=== PATIENT | male | born 1980 | race African-American/Black ===

== ENCOUNTER 2016-07-19 07:08 | Emergency (ER) | payer BC ==
[2016-07-19] MEDS ORDERED: DEXAMETHASONE SOD PHOS INJ 10 MG/1 ML VIAL IM ONE (07:58)
[2016-07-19] MEDS ORDERED: KETOROLAC TROMETHAMINE 60 MG/2 ML SDV IM ONE (07:58)
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
[2016-07-19 10:11] VITALS: BP 132/95
== END 2016-07-19 10:10 | disposition home or self-care (01) ==
LOC: ER 07:08
DX: M25.511 Pain in right shoulder (principal); F17.210 Nicotine dependence, cigarettes, uncomplicated
CPT/HCPCS: 99283; 73030; J1885; J1100

== ENCOUNTER 2018-04-19 08:17 | Emergency (ER) | payer SELFPAY ==
[2018-04-19 08:25] VITALS: BP 137/88
[2018-04-19] MEDS ORDERED: CEFTRIAXONE INJ 250 MG VIAL IM ONE (08:55)
[2018-04-19] MEDS ORDERED: CEFTRIAXONE INJ 1000 MG VIAL ONE (08:58)
--- NOTE | 2018-04-19 08:58 | ER Document Report ---
ED General - General Chief Complaint: Abscess Stated Complaint: ABSCESS Time Seen by Provider: 04/19/18 08:44 TRAVEL OUTSIDE OF THE [place] IN LAST 30 DAYS: No - HPI Patient complains to provider of: Abscess Notes: Patient coming in for evaluation of an abscess behind the left ear. Patient states a few days ago noticed a little knot behind the left ear patient states he continue to grow states last night his pressed on the wound causing and expressing pus to come out patient states exquisitely tender earlier this morning and now is red and warm. Patient denies any fevers chills nausea vomiting diarrhea. Patient denies history of MRSA in the past. Patient denies any trauma to the area denies any ear pain patient resting comfortably upon my evaluation - Related Data Allergies/Adverse Reactions: No Known Allergies Allergy (Verified 04/19/18 08:17) Past Medical History - Social History Smoking Status: Current Every Day Smoker Chew tobacco use (# tins/day): No Frequency of alcohol use: Social Drug Abuse: None Family History: Arthritis, CAD, CVA, Hyperlipidemia, Hypertension Patient has suicidal ideation: No Patient has homicidal ideation: No Renal/ Medical History: Denies: Hx Peritoneal Dialysis - Immunizations Immunizations up to date: No Hx Diphtheria, Pertussis, Tetanus Vaccination: No Review of Systems - Review of Systems Constitutional: No symptoms reported EENT: Other - Abscess Cardiovascular: No symptoms reported Respiratory: No symptoms reported Gastrointestinal: No symptoms reported Genitourinary: No symptoms reported Male Genitourinary: No symptoms reported Musculoskeletal: No symptoms reported Skin: No symptoms reported Hematologic/Lymphatic: No symptoms reported Neurological/Psychological: No symptoms reported -: Yes All other systems reviewed and negative Physical Exam - Vital signs Vitals: Temp Pulse Resp BP Pulse Ox 97.6 F 96 18 137/88 H 99 04/19/18 08:21 04/19/18 08:21 04/19/18 08:21 04/19/18 08:21 04/19/18 08:21 Interpretation: Normal - General General appearance: Appears well, Alert - HEENT Head: Normocephalic, Atraumatic Eyes: Normal Conjunctiva: Normal Cornea: Normal Eyelashes: Normal Pupils: PERRL Ears: Normal, Other - Behind the left ear around the postauricular area there is significant erythema and tenderness to palpation there is signs of drainage from it looks like to be possible lymph node versus abscess bedside ultrasound was performed showing no fluid collection that is drainable at this time External canal: Normal Tympanic membrane: Normal Sinus: Normal Nasal: Normal Mouth/Lips: Normal Mucous membranes: Normal Pharynx: Normal Neck: Normal. No: Lymphadenopathy Notes: Examination of the patient's oral cavity reveals severe dental disease with multiple dental caries - Respiratory Respiratory status: No respiratory distress Chest status: Nontender Breath sounds: Normal Chest palpation: Normal - Cardiovascular Rhythm: Regular Heart sounds: Normal auscultation Murmur: No - Abdominal Inspection: Normal Distension: No distension Bowel sounds: Normal Tenderness: Nontender Organomegaly: No organomegaly - Back Back: Normal, Nontender - Extremities General upper extremity: Normal inspection, Nontender, Normal color, Normal ROM, Normal temperature General lower extremity: Normal inspection, Nontender, Normal color, Normal ROM, Normal temperature, Normal weight bearing. No: Mark's sign - Neurological Neuro grossly intact: Yes Cognition: Normal Orientation: AAOx4 [place] Coma Scale Eye Opening: Spontaneous [place] Coma Scale Verbal: Oriented Yessica Coma Scale Motor: Obeys Commands [place] Coma Scale Total: 15 Speech: Normal Motor strength normal: LUE, RUE, LLE, RLE Sensory: Normal - Psychological Associated symptoms: Normal affect, Normal mood - Skin Skin Temperature: Warm Skin Moisture: Dry Skin Color: Normal Course - Re-evaluation Re-evalutation: 04/19/18 09:43 Patient's history is consistent with an abscess versus an infected lymph node in the postauricular area patient now has significant cellulitis of the area will give the patient a shot of Rocephin will start the patient on clindamycin for antibiotic coverage. Otherwise examination is normal patient will be discharged home follow-up primary care physician. - Vital Signs Vital signs: Temp Pulse Resp BP Pulse Ox 97.6 F 96 18 137/88 H 99 04/19/18 08:21 04/19/18 08:21 04/19/18 08:21 04/19/18 08:21 04/19/18 08:21 Discharge - Discharge Clinical Impression: Cellulitis and abscess of head Condition: Good Disposition: HOME, SELF-CARE Instructions: Abscess ([facility]), Cellulitis ([facility]), Clindamycin ([facility]), Oral Narcotic Medication ([facility]) Additional Instructions: More likely he had an abscess last night that your drained pus out of them now have a skin infection or cellulitis we will treat this with antibiotic called clindamycin. I will highly recommend she follow-up with your primary care physician return to the ER symptoms worsen. You may take Tylenol and Motrin for your pain control Ultram for severe pain you may place warm packs to the area to help out with pain control as well. Prescriptions: Ibuprofen [Motrin 600 mg Tablet] 600 mg PO Q8HP PRN #21 tablet PRN Reason: Clindamycin HCl [Cleocin 150 mg Capsule] 150 mg PO Q6 #40 capsule Tramadol HCl [Ultram 50 mg Tablet] 50 mg PO ASDIR PRN #10 tablet PRN Reason: Forms: Return to Work
== END 2018-04-19 09:20 | disposition home or self-care (01) ==
LOC: ER 08:17
DX: L03.811 Cellulitis of head [any part, except face] (principal); H60.02 Abscess of left external ear; F17.200 Nicotine dependence, unspecified, uncomplicated
CPT/HCPCS: 99282; J0696

== ENCOUNTER 2019-03-16 01:01 | Observation (INO) | payer OTHER ==
[2019-03-16] MEDS ORDERED: ASPIRIN 81 MG TABLET, CHEWABLE PO ONE (01:11)
--- NOTE | 2019-03-16 01:14 | ER Document Report ---
ED Cardiac - General Stated Complaint: CHEST PAIN,SHORT OF BREATH Time Seen by Provider: 03/16/19 01:05 Notes: Patient is a 38-year-old male that comes emergency department for chief complaint of chest pain. He states chest pain started in the middle of his chest and towards the left side of his chest about 20 minutes prior to arrival, he states that the pain is making him feel short of breath and he started hyperventilating. He denies nausea or vomiting, cough, fever/chills, injury. He states he just quit smoking. Past medical history of hypertension and he is also reportedly on Plavix and aspirin, he states that he had a cardiac cath and stent performed at [facility] at the end of February. He denies medical history otherwise. TRAVEL OUTSIDE OF THE [place] IN LAST 30 DAYS: No - Related Data Allergies/Adverse Reactions: No Known Allergies Allergy (Verified 04/19/18 08:17) Past Medical History - General Information source: Patient - Social History Smoking Status: Former Smoker Lives with: Other - Incarcerated Family History: Arthritis, CAD, CVA, Hyperlipidemia, Hypertension - Past Medical History Cardiac Medical History: Reports: Hx Coronary Artery Disease, Hx Heart Attack, Hx Hypertension Renal/ Medical History: Denies: Hx Peritoneal Dialysis Past Surgical History: Reports: Hx Cardiac Catheterization - Cardiac catheterization with drug-eluting stent in February 2019 - Immunizations Hx Diphtheria, Pertussis, Tetanus Vaccination: Yes Review of Systems - Review of Systems Constitutional: No symptoms reported EENT: No symptoms reported Cardiovascular: See HPI Respiratory: See HPI Gastrointestinal: No symptoms reported Genitourinary: No symptoms reported Male Genitourinary: No symptoms reported Musculoskeletal: No symptoms reported Skin: No symptoms reported Hematologic/Lymphatic: No symptoms reported Neurological/Psychological: See HPI Physical Exam - Vital signs Vitals: Temp Pulse Resp Pulse Ox 97.4 F 79 22 H 100 03/16/19 01:12 03/16/19 01:12 03/16/19 01:12 03/16/19 01:12 - Notes Notes: GENERAL: Alert, responsive, hyperventilating and anxious appearing HEAD: Normocephalic, atraumatic. EYES: Pupils equal, round, and reactive to light. Extraocular movements intact. ENT: Oral mucosa moist, tongue midline. Oropharynx unremarkable. Airway patent. Nares patent, no nasal septal hematoma, TM's intact. NECK: Full range of motion. Supple. Trachea midline. LUNGS: Clear to auscultation bilaterally, no wheezes, rales, or rhonchi. Hyperventilating. There is some mild tenderness along the parasternal areas bilaterally without erythema, swelling, or severe tenderness. HEART: Regular rate and rhythm. No murmur ABDOMEN: Soft, non-tender. Non-distended. EXTREMITIES: Moves all 4 extremities spontaneously. No edema, normal radial and dorsalis pedis pulses bilaterally. No cyanosis. BACK: no cervical, thoracic, lumbar midline tenderness. No saddle anesthesia, normal distal neurovascular exam. Moves all extremities in full range of motion. NEUROLOGICAL: Alert and oriented x3. Normal speech. Cranial nerves II through XII grossly intact. PSYCH: Hyperventilating and anxious appearing SKIN: Warm, dry, normal turgor. No rashes or lesions noted. Course - Re-evaluation Re-evalutation: Patient initially hyperventilating, appears anxious and states he is feeling s harp pain in the chest radiating to the left side. Patient given aspirin, work- up initiated, will closely reevaluate. His vital signs are normal. EKG without concerning findings, chest x-ray unremarkable. I reevaluated patient, he is much calmer, pain is almost resolved, he is no longer hyperven tilating. He states he became anxious because of his recent experience with his heart. Troponin negative. CBC shows mild leukocytosis, nonspecific. Chemistry unremarkable. I did obtain records from [facility], this does confirm that patient had a STEMI, V. fib arrest, 2 minutes of chest compressions, and had a cardiac catheterization with a stent placed. He states that he missed the [facility] low-up to cardiology because he was told it would be $300. He states pain is still minimally there. He does also have some parasternal chest wall tenderness although this is hard to say that it is the same pain he was feeling because pain was mainly spreading out over the left side of the chest when he felt it. Discussed with Dr. Muller. Because of his recent cardiac history recommendation is to admit to telemetry observation. After the small dose of morphine the left-sided radiating pain is resolved, only the chest wall pain remains and this is mild and mainly with palpation. Patient does distinguish between the two. Discussed with Dr. Woods, he recommends repeat troponin. Discussed with Dr. Woods again, second troponin negative, patient has been reevaluated bedside without change, patient accepted to telemetry observation. - Vital Signs Vital signs: Temp Pulse Resp BP Pulse Ox 97.8 F 75 16 131/80 H 98 03/16/19 05:32 03/16/19 05:32 03/16/19 05:32 03/16/19 05:32 03/16/19 05:32 - Laboratory Result Diagrams: 03/16/19 01:15 03/16/19 01:15 Laboratory results interpreted by me: 03/16/19 03/16/19 01:15 01:15 WBC 14.1 H RBC 4.18 L MCV 108 H MCH 36.9 H RDW 15.8 H Baso % (Auto) 2.5 H Absolute Basos (auto) 0.4 H Calcium 10.5 H Total Protein 8.5 H Albumin 5.1 H - EKG Interpretation by Me Additional EKG results interpreted by me: Patient is EKG shows sinus rhythm at a rate of 83, QTC of 49, normal axis, no T wave inversions or ST segment changes in consecutive leads. There is small amount of artifact present. Discharge - Discharge Clinical Impression: Chest pain Qualifiers: Chest pain type: chest pain on breathing Qualified Code(s): R07.1 - Chest pain on breathing Condition: Stable Disposition: ADMITTED OBSERVATION Admitting Provider: Chuck (Hospitalist) Unit Admitted: Telemetry
[2019-03-16 01:44] LABS: ABSOLUTE BASOPHILS # (AUTO) 0.4 10^3/uL (0.0-0.2); ABSOLUTE EOSINOPHILS # (AUTO) 0.5 10^3/uL (0.0-0.6); ABSOLUTE LYMPHOCYTES (AUTO) 4.2 10^3/uL (0.5-4.7); ABSOLUTE MONOCYTES (AUTO) 0.8 10^3/uL (0.1-1.4); ABSOLUTE NEUT (AUTO) 8.2 10^3/uL (1.7-8.2); BASOPHILS % (AUTO) 2.5 % (0-2); EOSINOPHILS % (AUTO) 3.5 % (0-6); HEMATOCRIT 44.9 % (37.9-51.0); HEMOGLOBIN 15.4 g/dL (13.5-17.0); LYMPHOCYTES % (AUTO) 29.8 % (13-45); MEAN CORPUSCULAR HEMOGLOBIN 36.9 pg (27.0-33.4); MEAN CORPUSCULAR HGB CONC 34.3 g/dL (32.0-36.0); MEAN CORPUSCULAR VOLUME 108 fl (80-97); MONOCYTES % (AUTO) 5.8 % (3-13); PLATELET COUNT 434 10^3/uL (150-450); RED BLOOD COUNT 4.18 10^6/uL (4.35-5.55); RED CELL DISTRIBUTION WIDTH 15.8 % (11.5-14.0); SEGMENTED NEUTROPHILS % (AUTO) 58.4 % (42-78); TOTAL CELLS COUNTED % (AUTO) 100 %; WHITE BLOOD COUNT 14.1 10^3/uL (4.0-10.5)
--- NOTE | 2019-03-16 02:06 | RADIOLOGY REPORT (SQ) ---
CLINICAL HISTORY: chest pain COMPARISON: None. TECHNIQUE: XR CHEST 1 VIEW 03/16/2019 1:11 AM [employer] [facility] COORD[employer] FINDINGS: Cardiac silhouette is normal in size. Lungs are clear without consolidation, atelectasis, mass or edema. There is no pleural effusion. There is no pneumothorax. There are no acute osseous findings. IMPRESSION: Clear lungs.
[2019-03-16 02:16] LABS: ALBUMIN 5.1 g/dL (3.5-5.0); ALKALINE PHOSPHATASE 98 U/L (38-126); ANION GAP 18 (5-19); ASPARTATE AMINO TRANSFERASE 45 U/L (17-59); BILIRUBIN,DIRECT 0.2 mg/dL (0.0-0.4); BILIRUBIN,TOTAL 0.7 mg/dL (0.2-1.3); BLOOD UREA NITROGEN 15 mg/dL (7-20); CALCIUM 10.5 mg/dL (8.4-10.2); CARBON DIOXIDE 23 mmol/L (22-30); CHLORIDE 99 mmol/L (98-107); GLUCOSE 86 mg/dL (75-110); TOTAL PROTEIN 8.5 g/dL (6.3-8.2)
[2019-03-16] MEDS ORDERED: MORPHINE SULFATE 10 MG/ML INJ IV ONE (03:39)
[2019-03-16] MEDS ORDERED: ONDANSETRON HCL INJ/PF 4 MG/2 ML SDV IV ONE (03:40)
[2019-03-16] MEDS ORDERED: NITROGLYCERIN 0.4 MG/TAB 25 TAB/BOTTLE SL PRN (06:11)
--- NOTE | 2019-03-16 06:38 | PDOC H&P ---
History of Present Illness Admission Date/PCP: 03/16/19 06:07 Patient complains of: Chest pain History of Present Illness: NUBIA HU is a 38 year old male with a past medical history of hypertension, tobacco, marijuana abuse and a V. fib arrest 21 days ago at [facility]. He received several minutes of CPR with successful resuscitation he was taken to the [facility] and found to have an occluded coronary artery which was stented. He was discharged with aspirin and Plavix with scheduled follow-up in the [place] office however has missed this appointment secondary to incarceration. Patient admits 48 hours of missed medications prior to incarce ration. He presents with sharp retrosternal chest pain 2 out of 5 intensity lasting approximately 1 minute which is intermittent. He is unable to identify alleviating factors however it is exacerbated by deep breathing and is associated with some shortness of breath with normal pulse oximetry. In the emergency department he has an unremarkable work-up with exception to mild leukocytosis he is referred to the hospitalist for admission. Patient has a notable anxious affect. Past Medical History Cardiac Medical History: Reports: Hyperlipidema, Hypertension Psychiatric Medical History: Reports: Substance Abuse, Tobacco Dependency Past Surgical History Past Surgical History: Reports: Cardiac Catheterization, Coronary Stent Social History Information Source: Patient, Emergency Med Personnel, Outside Facility Records Lives with: Other Smoking Status: Former Smoker Drugs: Marijuana - Advance Directive Resuscitation Status: Full Code Family History Family History: Arthritis, CAD, CVA, Hyperlipidemia, Hypertension Parental Family History Reviewed: Yes Children Family History Reviewed: Yes Sibling(s) Family History Reviewed.: Yes Medication/Allergy Home Medications: Ondansetron [Zofran Odt 4 mg Tablet] 1 - 2 tab PO Q4H PRN #15 tab.rapdis 07/09/14 Promethazine HCl [Phenergan 25 mg Tablet] 1 - 2 tab PO Q6H PRN #15 tablet 07/09/14 Sucralfate [Carafate 1 gm Tablet] 1 gm PO ACHS #30 tablet 07/09/14 Oxycodone HCl/Acetaminophen [Percocet 5-325 mg Tablet] 1 - 2 tab PO Q4H PRN #15 tablet 03/25/16 Hydrocodone/Acetaminophen [[place] 5-325 mg Tablet] 1 tab PO Q6HP PRN #10 tablet 07/19/16 Clindamycin HCl [Cleocin 150 mg Capsule] 150 mg PO Q6 #40 capsule 04/19/18 Ibuprofen [Motrin 600 mg Tablet] 600 mg PO Q8HP PRN #21 tablet 04/19/18 Tramadol HCl [Ultram 50 mg Tablet] 50 mg PO ASDIR PRN #10 tablet 04/19/18 Allergies/Adverse Reactions: No Known Allergies Allergy (Verified 04/19/18 08:17) Review of Systems Constitutional: ABSENT: chills, fever(s), headache(s), weight gain, weight loss Eyes: ABSENT: visual disturbances Ears: ABSENT: hearing changes Cardiovascular: ABSENT: chest pain, dyspnea on exertion, edema, orthropnea, palpitations Respiratory: ABSENT: cough, hemoptysis Gastrointestinal: ABSENT: abdominal pain, constipation, diarrhea, hematemesis, hematochezia, nausea, vomiting Genitourinary: ABSENT: dysuria, hematuria Musculoskeletal: ABSENT: joint swelling Integumentary: ABSENT: rash, wounds Neurological: ABSENT: abnormal gait, abnormal speech, confusion, dizziness, focal weakness, syncope Psychiatric: ABSENT: anxiety, depression, homidical ideation, suicidal ideation Endocrine: ABSENT: cold intolerance, heat intolerance, polydipsia, polyuria Hematologic/Lymphatic: ABSENT: easy bleeding, easy bruising Physical Exam Vital Signs: Temp Pulse Resp BP Pulse Ox 97.8 F 75 16 131/80 H 98 03/16/19 05:32 03/16/19 05:32 03/16/19 05:32 03/16/19 05:32 03/16/19 05:32 Intake & Output 03/14/19 03/15/19 03/16/19 11:59 11:59 11:59 Weight 86.183 kg General appearance: PRESENT: no acute distress, well-developed, well-nourished Head exam: PRESENT: atraumatic, normocephalic Eye exam: PRESENT: conjunctiva pink, EOMI, PERRLA. ABSENT: scleral icterus Ear exam: PRESENT: normal external ear exam Mouth exam: PRESENT: moist, tongue midline Neck exam: ABSENT: carotid bruit, JVD, lymphadenopathy, thyromegaly Respiratory exam: PRESENT: clear to auscultation asha. ABSENT: rales, rhonchi, wheezes Cardiovascular exam: PRESENT: RRR. ABSENT: diastolic murmur, rubs, systolic murmur Pulses: PRESENT: normal dorsalis pedis pul Vascular exam: PRESENT: normal capillary refill GI/Abdominal exam: PRESENT: normal bowel sounds, soft. ABSENT: distended, guarding, mass, organolmegaly, rebound, tenderness Rectal exam: PRESENT: deferred Extremities exam: PRESENT: full ROM. ABSENT: calf tenderness, clubbing, pedal edema Neurological exam: PRESENT: alert, awake, oriented to person, oriented to place, oriented to time, oriented to situation, CN II-XII grossly intact. ABSENT: motor sensory deficit Psychiatric exam: PRESENT: appropriate affect, normal mood. ABSENT: homicidal ideation, suicidal ideation Skin exam: PRESENT: dry, intact, warm. ABSENT: cyanosis, rash Results Laboratory Results: 03/16/19 01:15 03/16/19 01:15 03/16/19 03/16/19 01:15 01:15 WBC 14.1 H RBC 4.18 L Hgb 15.4 Hct 44.9 MCV 108 H MCH 36.9 H MCHC 34.3 RDW 15.8 H Plt Count 434 Seg Neutrophils % 58.4 Sodium 140.3 Potassium 4.0 Chloride 99 Carbon Dioxide 23 Anion Gap 18 BUN 15 Creatinine 0.93 Est GFR ( Amer) > 60 Glucose 86 Calcium 10.5 H Total Bilirubin 0.7 AST 45 Alkaline Phosphatase 98 Total Protein 8.5 H Albumin 5.1 H 03/16/19 03/16/19 01:15 04:15 Troponin I < 0.012 < 0.012 Impressions: Chest X-Ray 03/16/19 01:11 IMPRESSION: Clear lungs. Assessment and Plan - Diagnosis (1) Coronary artery disease Is this a current diagnosis for this admission?: Yes Plan: Continue dual antiplatelet therapy, Lopressor and atorvastatin (2) Chest pain Qualifiers: Chest pain type: chest pain on breathing Qualified Code(s): R07.1 - Chest pain on breathing; R07.81 - Pleurodynia Is this a current diagnosis for this admission?: Yes Plan: Telemetry observation for possible ACS however more likely atelectasis versus Matt's. Follow-up ESR and serial cardiac enzymes. (3) Anxiety Is this a current diagnosis for this admission?: Yes Plan: Possible cannabis withdrawal, supportive care follow-up urine drug screen - Time Time Spent with patient: 25-34 minutes - Inpatient Certification Medical Necessity: Need Close Monitoring Due to Risk of Patient Decompensation
[2019-03-16 07:49] LABS: URINE AMPHETAMINES SCREEN NEGATIVE; URINE BARBITURATES SCREEN NEGATIVE; URINE BENZODIAZEPINES SCREEN NEGATIVE; URINE COCAINE SCREEN NEGATIVE; URINE MARIJUANA (THC) SCREEN NEGATIVE; URINE METHADONE SCREEN NEGATIVE; URINE PHENCYCLIDINE SCREEN NEGATIVE
--- NOTE | 2019-03-16 08:09 | EKG REPORT ---
SEVERITY:- BORDERLINE ECG - SINUS RHYTHM PROBABLE LEFT ATRIAL ABNORMALITY BORDERLINE PROLONGED QT INTERVAL BORDERLINE NH INTERVAL. : Confirmed by: Presley Amaya MD 16-Mar-2019 08:08:22
[2019-03-16] MEDS: ASPIRIN 81 MG TABLET, ENT COATED PO SCH (10:05)
[2019-03-16] MEDS: CLOPIDOGREL BISULFATE 75 MG TABLET PO SCH (10:05)
[2019-03-16 11:37] LABS: APPEARANCE,URINE CLEAR; BILIRUBIN,URINE NEGATIVE (NEGATIVE); COLOR,URINE LIGHT YELLOW; GLUCOSE, URINE NEGATIVE (NEGATIVE); KETONES,URINE NEGATIVE (NEGATIVE); LEUKOCYTE ESTERASE,URINE SMALL (NEGATIVE); NITRITE,URINE NEGATIVE (NEGATIVE); PROTEIN,URINE NEGATIVE (NEGATIVE); URINE SPECIFIC GRAVITY 1.009; UROBILINOGEN,URINE NEGATIVE mg/dL (<2.0)
[2019-03-16] MEDS ORDERED: ASPIRIN 325 MG TABLET PO PRN (16:08)
[2019-03-16] MEDS: ACETAMINOPHEN 325 MG TABLET PO PRN (17:04)
--- NOTE | 2019-03-16 18:39 | EKG REPORT ---
SEVERITY:- NORMAL ECG - SINUS RHYTHM : Confirmed by: Presley Amaya MD 16-Mar-2019 18:38:19
[2019-03-16] MEDS ORDERED: INFLUENZA QUAD (6MOS+) 2019-20 VAC 0.5 ML SYR IM ONE (19:26)
[2019-03-16] MEDS: ASPIRIN 325 MG TABLET PO PRN (21:37)
[2019-03-16] MEDS: METOPROLOL TARTRATE 25 MG TABLET PO SCH (21:37)
[2019-03-16] MEDS ORDERED: ATORVASTATIN CALCIUM 40 MG TABLET PO SCH (22:00)
[2019-03-17] MEDS: ACETAMINOPHEN 325 MG TABLET PO PRN (04:25)
[2019-03-17] MEDS: METOPROLOL TARTRATE 25 MG TABLET PO SCH (09:39)
[2019-03-17] MEDS: CLOPIDOGREL BISULFATE 75 MG TABLET PO SCH (09:40)
[2019-03-17] MEDS: ASPIRIN 81 MG TABLET, ENT COATED PO SCH (09:40)
[2019-03-17] MEDS ORDERED: AMLODIPINE BESYLATE 5 MG TABLET PO SCH (10:00)
--- NOTE | 2019-03-17 14:16 | XCELERA REPORT ---
[address] [address] Transthoracic Echocardiogram Report Name: NUBIA HU Age: 38 yrs Gender: Male : 1980 Patient Status: In[facility] Date: 03/17/2019 10:43 AM Height: 74 in Weight: 190 lb BSA: 2.1 m2 Procedure: A two-dimensional transthoracic echocardiogram with color flow and Doppler was performed. Study Quality: Good. Reason For Study: pleuritic CPain s/p PCI. r/o pericard effusion History: pleuritic CPain s/p PCI. r/o pericard effusion. Ordering Physician: JENNIFER SANCHEZ Performed By: Akosua Knox Interpretation Summary The left ventricle is normal in size. There is moderate concentric left ventricular hypertrophy. LV EF is 70% Left ventricular systolic function is normal. The left ventricular wall motion is normal. There is no thrombus. The right ventricle is normal in size and function. The right atrium is normal. The left atrial size is normal. The interatrial septum is intact with no evidence for an atrial septal defect. There is no Doppler evidence for an interatrial shunt There is no evidence of mitral valve prolapse. There is no vegetation seen on the mitral valve. There is no mitral valve stenosis. There is a trace amount of mitral regurgitation There is no aortic valvular vegetation. There is no aortic valve stenosis There is no LVOT obstruction. No aortic regurgitation is present. There is no tricuspid stenosis. There is a trace amount of tricuspid regurgitation Tricuspid regurgitation jet envelope not well defined to measure RV systolic pressure accurately. There is no pulmonic valvular stenosis. There is no pulmonic valvular regurgitation. The aortic root is normal size. The inferior vena cava appeared normal and decreased > 50% with respiration (RAP 5-10 mmHg) There is no pericardial effusion. MMode/2D Measurements & Calculations RVDd: 2.7 cm LVIDd: 4.2 cm FS: 44.2 % Ao root diam: 2.6 cm IVSd: 1.4 cm LVIDs: 2.4 cm EDV(Teich): 79.6 ml Ao root area: 5.3 cm2 LVPWd: 1.4 cm ESV(Teich): 19.3 ml LA dimension: 2.8 cm EF(Teich): 75.8 % Doppler Measurements & Calculations MV E max estela: MV dec slope: Ao V2 max: LV V1 max P.1 cm/sec 340.0 cm/sec2 125.4 cm/sec 4.2 mmHg MV A max estela: MV dec time: 0.23 sec Ao max PG: LV V1 max: 68.9 cm/sec 6.7 mmHg 102.4 cm/sec MV E/A: 1.1 PA V2 max: PI end-d estela: 93.9 cm/sec 99.0 cm/sec PA max P.5 mmHg Left Ventricle The left ventricle is normal in size. There is moderate concentric left ventricular hypertrophy. LV EF is 70%. Left ventricular systolic function is normal. Doppler measurements suggest normal left ventricular diastolic function. The left ventricular wall motion is normal. There is no thrombus. There is no ventricular septal defect visualized. Right Ventricle The right ventricle is normal in size and function. Atria The right atrium is normal. The left atrial size is normal. The interatrial septum is intact with no evidence for an atrial septal defect. There is no Doppler evidence for an interatrial shunt. Mitral Valve There is no evidence of mitral valve prolapse. There is no vegetation seen on the mitral valve. There is no mitral valve stenosis. There is a trace amount of mitral regurgitation. Aortic Valve There is no aortic valvular vegetation. There is no aortic valve stenosis. There is no LVOT obstruction. No aortic regurgitation is present. Tricuspid Valve There is no tricuspid stenosis. There is a trace amount of tricuspid regurgitation. Tricuspid regurgitation jet envelope not well defined to measure RV systolic pressure accurately. Pulmonic Valve There is no pulmonic valvular stenosis. There is no pulmonic valvular regurgitation. Great Vessels The aortic root is normal size. The inferior vena cava appeared normal and decreased > 50% with respiration (RAP 5-10 mmHg). Effusions There is no pericardial effusion. : JENNIFER SANCHEZ Lakshmi
--- NOTE | 2019-03-17 15:01 | PDOC DISCHARGE SUMMARY ---
Impression - Admit/DC Date/PCP Admission Date/Primary Care Provider: 03/16/19 06:07 Discharge Date: 03/17/19 - Assessment Summary: Patient was admitted for evaluation of chest pain. Troponins were trended [address] on negative. Patient was hemodynamically stable. Patient received pain control and aspirin as well as Plavix. EKG showed no significant new findings of ischemia or pericarditis. Echocardiogram was performed which was normal with no evidence of pericardial effusions. Case was discussed with mortgage or loan underwriter who recommended that patient be discharged to follow-up with his mortgage or loan underwriter at [facility] for further evaluation. Patient is in stable condition and his chest pain is pretty much resolved and being discharged. - Additional Information Resuscitation Status: Full Code Discharge Diet: Cardiac Discharge Activity: Activity As Tolerated Referrals: [facility] [Outside] - 03/19/19 4:00 pm (WITH DR. JACKSON) Prescriptions: Nitroglycerin [Nitrostat 0.4 mg (1/150 Gr) Tabs 25/Bottle] 1 tab SL Q5MP PRN #1 bottle PRN Reason: For Chest Pain Home Medications: Amlodipine Besylate [Norvasc 5 mg Tablet] 5 mg PO DAILY 03/16/19 Aspirin [Ecotrin 81 mg EC Tablet] 81 mg PO DAILY 03/16/19 Atorvastatin Calcium [Lipitor 40 mg Tablet] 40 mg PO QHS 03/16/19 Clopidogrel Bisulfate [Plavix 75 mg Tablet] 75 mg PO DAILY 03/16/19 Metoprolol Tartrate [Lopressor 25 mg Tablet] 25 mg PO Q12 03/16/19 Nitroglycerin [Nitrostat 0.4 mg (1/150 Gr) Tabs 25/Bottle] 1 tab SL Q5MP PRN #1 bottle 03/17/19 History of Present Illiness History of Present Illness: NUBIA HU is a 38 year old male with a past medical history of hypertension, tobacco, marijuana abuse and a V. fib arrest 21 days ago at [facility]. He received several minutes of CPR with successful resuscitation he was taken to the [facility] [employer] [facility] and found to have an occluded coronary artery which was stented. He was discharged with aspirin and Plavix with scheduled follow-up in the [place] office however has missed this appointment secondary to incarceration. Patient admits 48 hours of missed medications prior to incarceration. He presents with sharp retrosternal chest pain 2 out of 5 intensity lasting approximately 1 minute which is intermittent. He is unable to identify alleviating factors however it is exacerbated by deep breathing and is associated with some shortness of breath with normal pulse oximetry. In the emergency department he has an unremarkable work-up with exception to mild leukocytosis he is referred to the hospitalist for admission. Patient has a notable anxious affect. Physical Exam Vital Signs: Temp Pulse Resp BP Pulse Ox 98.3 F 69 16 113/92 H 100 03/17/19 12:20 03/17/19 12:20 03/17/19 12:20 03/17/19 12:20 03/17/19 12:20 Intake & Output 03/16/19 03/17/19 03/18/19 06:59 06:59 06:59 Intake Total 714 Balance 714 Weight 86.183 kg 80.7 kg General appearance: PRESENT: no acute distress, cooperative Respiratory exam: PRESENT: clear to auscultation asha Cardiovascular exam: PRESENT: RRR, +S1, +S2. ABSENT: diastolic murmur, systolic murmur Neurological exam: PRESENT: alert, awake Results Laboratory Results: WBC 14.1 10^3/uL (4.0-10.5) H 03/16/19 01:15 RBC 4.18 10^6/uL (4.35-5.55) L 03/16/19 01:15 Hgb 15.4 g/dL (13.5-17.0) 03/16/19 01:15 Hct 44.9 % (37.9-51.0) 03/16/19 01:15 MCV 108 fl (80-97) H 03/16/19 01:15 MCH 36.9 pg (27.0-33.4) H 03/16/19 01:15 MCHC 34.3 g/dL (32.0-36.0) 03/16/19 01:15 RDW 15.8 % (11.5-14.0) H 03/16/19 01:15 Plt Count 434 10^3/uL (150-450) 03/16/19 01:15 Lymph % (Auto) 29.8 % (13-45) 03/16/19 01:15 [place] % (Auto) 5.8 % (3-13) 03/16/19 01:15 Eos % (Auto) 3.5 % (0-6) 03/16/19 01:15 Baso % (Auto) 2.5 % (0-2) H 03/16/19 01:15 Absolute Neuts (auto) 8.2 10^3/uL (1.7-8.2) 03/16/19 01:15 Absolute Lymphs (auto) 4.2 10^3/uL (0.5-4.7) 03/16/19 01:15 Absolute Monos (auto) 0.8 10^3/uL (0.1-1.4) 03/16/19 01:15 Absolute Eos (auto) 0.5 10^3/uL (0.0-0.6) 03/16/19 01:15 Absolute Basos (auto) 0.4 10^3/uL (0.0-0.2) H 03/16/19 01:15 Seg Neutrophils % 58.4 % (42-78) 03/16/19 01:15 ESR 21 mm/hr (0-15) H 03/16/19 06:42 Sodium 140.3 mmol/L (137-145) 03/16/19 01:15 Potassium 4.0 mmol/L (3.6-5.0) 03/16/19 01:15 Chloride 99 mmol/L (98-107) 03/16/19 01:15 Carbon Dioxide 23 mmol/L (22-30) 03/16/19 01:15 Anion Gap 18 (5-19) 03/16/19 01:15 BUN 15 mg/dL (7-20) 03/16/19 01:15 Creatinine 0.93 mg/dL (0.52-1.25) 03/16/19 01:15 Est GFR ( Amer) > 60 (>60) 03/16/19 01:15 Est GFR (MDRD) Non-Af > 60 (>60) 03/16/19 01:15 Glucose 86 mg/dL (75-110) 03/16/19 01:15 Calcium 10.5 mg/dL (8.4-10.2) H 03/16/19 01:15 Total Bilirubin 0.7 mg/dL (0.2-1.3) 03/16/19 01:15 Direct Bilirubin 0.2 mg/dL (0.0-0.4) 03/16/19 01:15 Neonat Total Bilirubin Not Reportable 03/16/19 01:15 Neonat Direct Bilirubin Not Reportable 03/16/19 01:15 Neonat Indirect Bili Not Reportable 03/16/19 01:15 AST 45 U/L (17-59) 03/16/19 01:15 ALT 43 U/L (<50) 03/16/19 01:15 Alkaline Phosphatase 98 U/L (38-126) 03/16/19 01:15 Troponin I < 0.012 ng/mL 03/16/19 22:10 Total Protein 8.5 g/dL (6.3-8.2) H 03/16/19 01:15 Albumin 5.1 g/dL (3.5-5.0) H 03/16/19 01:15 TSH 2.43 uIU/mL (0.47-4.68) 03/16/19 01:15 Urine Color LIGHT YELLOW 03/16/19 10:02 Urine Appearance CLEAR 03/16/19 10:02 Urine pH 6.0 (5.0-9.0) 03/16/19 10:02 Ur Specific [place] 1.009 03/16/19 10:02 Urine Protein NEGATIVE mg/dL (NEGATIVE) 03/16/19 10:02 Urine Glucose (UA) NEGATIVE mg/dL (NEGATIVE) 03/16/19 10:02 Urine Ketones NEGATIVE mg/dL (NEGATIVE) 03/16/19 10:02 Urine Blood NEGATIVE (NEGATIVE) 03/16/19 10:02 Urine Nitrite NEGATIVE (NEGATIVE) 03/16/19 10:02 Urine Bilirubin NEGATIVE (NEGATIVE) 03/16/19 10:02 Urine Urobilinogen NEGATIVE mg/dL (<2.0) 03/16/19 10:02 Ur Leukocyte Esterase SMALL (NEGATIVE) H 03/16/19 10:02 Urine WBC (Auto) 10 /HPF 03/16/19 10:02 Urine RBC (Auto) 0 /HPF 03/16/19 10:02 Squamous Epi Cells Auto 1 /HPF 03/16/19 10:02 Urine Mucus (Auto) RARE /LPF 03/16/19 10:02 Urine Ascorbic Acid NEGATIVE (NEGATIVE) 03/16/19 10:02 Urine Opiates Screen NEGATIVE 03/16/19 01:15 Urine Methadone Screen NEGATIVE 03/16/19 01:15 Ur Barbiturates Screen NEGATIVE 03/16/19 01:15 Ur Phencyclidine Scrn NEGATIVE 03/16/19 01:15 Ur Amphetamines Screen NEGATIVE 03/16/19 01:15 U Benzodiazepines Scrn NEGATIVE 03/16/19 01:15 Urine Cocaine Screen NEGATIVE 03/16/19 01:15 U Marijuana (THC) Screen NEGATIVE 03/16/19 01:15 03/16/19 03/16/19 03/16/19 01:15 04:15 11:01 Troponin I < 0.012 < 0.012 < 0.012 03/16/19 03/16/19 17:11 22:10 Troponin I < 0.012 < 0.012 Impressions: Chest X-Ray 03/16/19 01:11 IMPRESSION: Clear lungs. Plan Time Spent: Less than 30 Minutes Stroke Is this a Stroke Patient?: No Acute Heart Failure - Is this a Heart Failure Patient?: No
[2019-03-17 16:08] VITALS: BP 113/79
[2019-03-17] MEDS: ASPIRIN 325 MG TABLET PO PRN (16:17)
== END 2019-03-17 16:31 | disposition home or self-care (01) ==
LOC: ER 01:01 → EH 06:07 → 5 15:57
PROVIDERS: ADMIT Internal Medicine; ATTEND Internal Medicine
DX: R07.1 Chest pain on breathing (principal); I10 Essential (primary) hypertension; Z23 Encounter for immunization; D72.829 Elevated white blood cell count, unspecified; I25.10 Atherosclerotic heart disease of native coronary artery without angina pectoris; F41.9 Anxiety disorder, unspecified; R06.4 Hyperventilation; I25.2 Old myocardial infarction; F19.11 Other psychoactive substance abuse, in remission; Z95.5 Presence of coronary angioplasty implant and graft; Z87.891 Personal history of nicotine dependence; Z82.49 Family history of ischemic heart disease and other diseases of the circulatory system; Z79.02 Long term (current) use of antithrombotics/antiplatelets; Z79.82 Long term (current) use of aspirin; Z86.74 Personal history of sudden cardiac arrest
CPT/HCPCS: 93005 ×2; 99285; 96374; 96375; 36415; 84443; 85025; 85652; 80053; 81001; 84484; 80307; 93306; 71045; 90686; 93010; G0378 ×3; J2270; J2405

== ENCOUNTER 2019-12-26 03:30 | Emergency (ER) | payer MEDICAID ==
[2019-12-26 04:37] LABS: ALCOHOL 124 mg/dL (NONE DETECTED); ALKALINE PHOSPHATASE 120 U/L (38-126); ANION GAP 13 (5-19); ASPARTATE AMINO TRANSFERASE 81 U/L (17-59); BILIRUBIN,DIRECT 0.3 mg/dL (0.0-0.4); BILIRUBIN,TOTAL 0.8 mg/dL (0.2-1.3); BLOOD UREA NITROGEN 8 mg/dL (7-20); CALCIUM 9.7 mg/dL (8.4-10.2); CARBON DIOXIDE 20 mmol/L (22-30); CHLORIDE 108 mmol/L (98-107); GLUCOSE 128 mg/dL (75-110); POTASSIUM 3.5 mmol/L (3.6-5.0); TOTAL PROTEIN 8.3 g/dL (6.3-8.2)
[2019-12-26 04:38] LABS: ACETAMINOPHEN < 10 ug/mL (10-30); SALICYLATE < 1.0 mg/dL (2.0-20.0)
[2019-12-26 04:51] LABS: ABSOLUTE BASOPHILS # (AUTO) 0.1 10^3/uL (0.0-0.2); ABSOLUTE EOSINOPHILS # (AUTO) 0.3 10^3/uL (0.0-0.6); ABSOLUTE LYMPHOCYTES (AUTO) 3.3 10^3/uL (0.5-4.7); ABSOLUTE NEUT (AUTO) 9.7 10^3/uL (1.7-8.2); BASOPHILS % (AUTO) 0.9 % (0-2); EOSINOPHILS % (AUTO) 1.9 % (0-6); HEMATOCRIT 42.2 % (37.9-51.0); HEMOGLOBIN 14.8 g/dL (13.5-17.0); LYMPHOCYTES % (AUTO) 22.7 % (13-45); MEAN CORPUSCULAR HEMOGLOBIN 40.3 pg (27.0-33.4); MEAN CORPUSCULAR HGB CONC 35.2 g/dL (32.0-36.0); MONOCYTES % (AUTO) 7.2 % (3-13); PLATELET COUNT 353 10^3/uL (150-450); RED BLOOD COUNT 3.68 10^6/uL (4.35-5.55); RED CELL DISTRIBUTION WIDTH 18.1 % (11.5-14.0); SEGMENTED NEUTROPHILS % (AUTO) 67.3 % (42-78); TOTAL CELLS COUNTED % (AUTO) 100 %; WHITE BLOOD COUNT 14.5 10^3/uL (4.0-10.5)
[2019-12-26 04:52] LABS: MEAN CORPUSCULAR VOLUME 115 fl (80-97)
[2019-12-26 04:59] LABS: ANISOCYTOSIS 1+; TOXIC GRANULATION 1+; TOXIC VACUOLATION PRESENT
[2019-12-26 05:00] LABS: PLATELET COMMENT ADEQUATE; TEAR DROP CELLS SLIGHT
[2019-12-26 05:04] LABS: APPEARANCE,URINE CLEAR; BILIRUBIN,URINE NEGATIVE (NEGATIVE); COLOR,URINE STRAW; GLUCOSE, URINE NEGATIVE (NEGATIVE); KETONES,URINE NEGATIVE (NEGATIVE); LEUKOCYTE ESTERASE,URINE SMALL (NEGATIVE); NITRITE,URINE NEGATIVE (NEGATIVE); PROTEIN,URINE NEGATIVE (NEGATIVE); URINE SPECIFIC GRAVITY 1.002; UROBILINOGEN,URINE NEGATIVE mg/dL (<2.0)
[2019-12-26 05:08] LABS: URINE AMPHETAMINES SCREEN NEGATIVE; URINE BARBITURATES SCREEN NEGATIVE; URINE BENZODIAZEPINES SCREEN NEGATIVE; URINE COCAINE SCREEN NEGATIVE; URINE MARIJUANA (THC) SCREEN NEGATIVE; URINE METHADONE SCREEN NEGATIVE; URINE PHENCYCLIDINE SCREEN NEGATIVE
--- NOTE | 2019-12-26 05:54 | ER Document Report ---
ED Psych Disorder / Suicide - General Chief Complaint: Psych Problem Stated Complaint: PSYCH Time Seen by Provider: 12/26/19 04:24 Notes: Patient is a 39-year-old male who comes emergency department for chief complaint of depression, homelessness, suicidal ideations. Patient states that I took a few of my meds tonight. When I asked if he did this to commit suicide he states that he "kind of did but then instead of taking more I walked up to a stranger and told him how he felt". He states the stranger then called EMS. When I asked patient what he over took patient will not tell me. When I asked again what he took he states "a few of my prescribed medications". Patient is prescribed amlodipine, Brilinta, metoprolol, and aspirin. He has a history of hypertension, CAD. Patient denies any symptoms, denies chest pain, dizziness, shortness of breath, nausea, vomiting, fever. He states that he has been very depressed with his situation, he states he cannot see his , cannot see his children, he lives in the [facility], he states that he feels like there is nothing left and there is no point in going on. He states that he is thinking about suicide and he feels like it "might be the way". Patient denies being treated for depression, denies suicide attempts in the past. Patient admits to marijuana use and frequent liquor, however he denies alcohol dependence or ever having alcohol withdrawals. He smokes. TRAVEL OUTSIDE OF THE [place] IN LAST 30 DAYS: No - Related Data Allergies/Adverse Reactions: No Known Allergies Allergy (Verified 12/26/19 04:06) Past Medical History - General Information source: Patient - Social History Smoking Status: Current Every Day Smoker Frequency of alcohol use: Heavy Drug Abuse: Marijuana Lives with: Alone Family History: Arthritis, CAD, CVA, Hyperlipidemia, Hypertension Patient has homicidal ideation: No - Past Medical History Cardiac Medical History: Reports: Hx Coronary Artery Disease, Hx Heart Attack, Hx Hypercholesterolemia, Hx Hypertension Renal/ Medical History: Denies: Hx Peritoneal Dialysis Past Surgical History: Reports: Hx Cardiac Catheterization - Cardiac catheterization with drug-eluting stent in February 2019, Hx Coronary Stent - Immunizations Immunizations up to date: No Hx Diphtheria, Pertussis, Tetanus Vaccination: Yes Review of Systems - Review of Systems Constitutional: No symptoms reported EENT: No symptoms reported Cardiovascular: No symptoms reported Respiratory: No symptoms reported Gastrointestinal: No symptoms reported Genitourinary: No symptoms reported Male Genitourinary: No symptoms reported Musculoskeletal: No symptoms reported Skin: No symptoms reported Hematologic/Lymphatic: No symptoms reported Neurological/Psychological: See HPI Physical Exam - Vital signs Vitals: Temp Pulse Ox 98.3 F 100 12/26/19 03:54 12/26/19 03:54 - Notes Notes: GENERAL: Alert, interacts well. No acute distress. HEAD: Normocephalic, atraumatic. EYES: Pupils equal, round, and reactive to light. Extraocular movements intact. ENT: Oral mucosa moist, tongue midline. Oropharynx unremarkable. Airway patent. NECK: Full range of motion. Supple. Trachea midline. No lymphadenopathy. LUNGS: Clear to auscultation bilaterally, no wheezes, rales, or rhonchi. No respiratory distress. Non-tender chest wall. HEART: Regular rate and rhythm. No murmur ABDOMEN: Soft, non-tender. Non-distended. EXTREMITIES: Moves all 4 extremities spontaneously. No edema, normal radial and dorsalis pedis pulses bilaterally. No cyanosis. BACK: no cervical, thoracic, lumbar midline tenderness. No saddle anesthesia, normal distal neurovascular exam. Moves all extremities in full range of motion. NEUROLOGICAL: Alert and oriented x3. Normal speech. Cranial nerves II through XII grossly intact. Strength 5/5 in all extremities. PSYCH: Patient with a forlorn expression, frequently becomes tearful, however he does make good eye contact, does not appear to be responding to internal stimu li, appears to have good insight, is very cooperative and polite. SKIN: Warm, dry, normal turgor. No rashes or lesions noted. Course - Re-evaluation Re-evalutation: Patient becomes tearful when discussing his life situation, states he is very depressed. Initially he told me that he overdosed on his medications, then he amended the statement my stating he took a few extra medications, finally when asked to clarify this he does not report taking extra medications. Vital signs unremarkable, patient asymptomatic. Based on his evaluation and his amended statement I do not believe patient overdosed on his medications. Patient is reporting suicidal ideations however, he states that he feels like there is no way out and that suicide would be the way to go. He does report suicidal plan with plan of taking too many medications. Patient states that when he saw nearby stranger he decided to go speak to them and they called EMS. Is on his suicidal ideations with a plan, patient is been placed on IVC paperwork which was signed by Dr. Herrera. CBC with mild leukocytosis, nonspecific. Chemistry shows slightly low potassium , slightly low bicarbonate, slightly elevated LFTs, alcohol. Remaining work-up unremarkable including salicylates (patient takes a daily aspirin). Blood chemistry is consistent with frequent alcohol use, patient admits to frequently drinking liquor but he denies alcohol dependence or history of withdrawal. EKG with no acute findings. Patient asymptomatic again on reevaluation. Patient is medically cleared pending mental health evaluation. - Vital Signs Vital signs: Temp Pulse Resp BP Pulse Ox 98.3 F 17 134/95 H 100 12/26/19 03:54 12/26/19 04:00 12/26/19 03:56 12/26/19 04:00 - Laboratory Result Diagrams: 12/26/19 04:00 12/26/19 04:00 Laboratory results interpreted by me: 12/26/19 12/26/19 12/26/19 04:00 04:00 04:36 WBC 14.5 H RBC 3.68 L MCV 115 H MCH 40.3 H RDW 18.1 H Absolute Neuts (auto) 9.7 H Potassium 3.5 L Chloride 108 H Carbon Dioxide 20 L Glucose 128 H AST 81 H ALT 64 H Total Protein 8.3 H Ur Leukocyte Esterase SMALL H Salicylates < 1.0 L Acetaminophen < 10 L - EKG Interpretation by Me Additional EKG results interpreted by me: EKG shows sinus rhythm at a rate of 85, QTC of 462, normal axis, first-degree AV block with [place] interval of 216, no T wave inversions or ST segment changes in consecutive leads. Discharge - Discharge Clinical Impression: Suicidal ideation, Alcohol abuse Depression Qualifiers: Depression Type: unspecified Qualified Code(s): F32.9 - Major depressive disorder, single episode, unspecified Condition: Stable Disposition: PSYCH HOSP/UNIT
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
--- NOTE | 2019-12-26 15:23 | ER Document Report ---
Doctor's Note Notes: 12/26/19 14:55 Patient's vital signs and previous labs, diagnostic images reviewed. Reviewed mental health notes, nurse's notes and previous providers notes. VSS. Pt is in no distress at this time. Denies any SI or HI. General: A&Ox3. Answers questions appropriately. Heart: RRR Lungs: CTAB Psych: Flat affect A/P: Continue monitoring and rec's per MH. Normal diet will likely discharge home.
[2019-12-26 16:01] VITALS: BP 132/89
--- NOTE | 2019-12-26 17:18 | EKG REPORT ---
SEVERITY:- ABNORMAL ECG - SINUS RHYTHM FIRST DEGREE AV BLOCK : Confirmed by: Cecilio Madrid 26-Dec-2019 17:17:12
[2019-12-28 14:12] LABS: PATH REVIEW PATHOLOGIST REVIEWED
== END 2019-12-26 16:02 | disposition home or self-care (01) ==
LOC: ER 03:30
DX: F32.9 Major depressive disorder, single episode, unspecified (principal); R45.851 Suicidal ideations; F10.10 Alcohol abuse, uncomplicated; I44.0 Atrioventricular block, first degree; I25.10 Atherosclerotic heart disease of native coronary artery without angina pectoris; I10 Essential (primary) hypertension; I25.2 Old myocardial infarction; F17.200 Nicotine dependence, unspecified, uncomplicated; F12.10 Cannabis abuse, uncomplicated; Z59.0 Homelessness; Z79.899 Other long term (current) drug therapy; Z79.02 Long term (current) use of antithrombotics/antiplatelets; Z79.82 Long term (current) use of aspirin; Z95.5 Presence of coronary angioplasty implant and graft; Z63.5 Disruption of family by separation and divorce
CPT/HCPCS: 36415; 80053; 80307; 81001; 85025; 93005; 93010; 99284

== ENCOUNTER 2020-02-23 02:09 | Emergency (ER) | payer MEDICAID, OTHER ==
[2020-02-23] MEDS ORDERED: ACETAMINOPHEN 325 MG TABLET PO ONE (03:17)
[2020-02-23] MEDS ORDERED: KETOROLAC TROMETHAMINE INJ/PF 30 MG/1 ML SDV IV ONE (07:39)
--- NOTE | 2020-02-23 07:58 | ER Document Report ---
Entered by MITZY DEVRIES SCRIBE 02/23/20 0724 Acting as scribe for:RAMU MENG MD ED General - General Chief Complaint: Shoulder Pain Stated Complaint: BODY PAIN Time Seen by Provider: 02/23/20 07:21 Mode of Arrival: Medic Information source: Patient Notes: This 39 year old male patient presents to the ED today via EMS with complaints of bilateral shoulder and elbow pain that started yesterday morning. Patient denies injury or heavy lifting. Patient has a history of CAD s/p stent placement in 02/2019. He reports that he was having chest pain about x3 weeks ago and had to have the stent "reinflated" on 01/30. Denies any chest pain at this time. TRAVEL OUTSIDE OF THE [place] IN LAST 30 DAYS: No - Related Data Allergies/Adverse Reactions: No Known Allergies Allergy (Verified 02/23/20 03:09) Home Medications: CARDIAC MEDS Past Medical History - General Information source: Patient, [facility] Records - Social History Smoking Status: Current Every Day Smoker Cigarette use (# per day): Yes - 2 cigarettes pd Chew tobacco use (# tins/day): No Smoking Education Provided: No Frequency of alcohol use: None Drug Abuse: Marijuana Family History: Reviewed & Not Pertinent, Arthritis, CAD, CVA, Hyperlipidemia, Hypertension Patient has suicidal ideation: No Patient has homicidal ideation: No - Past Medical History Cardiac Medical History: Reports: Hx Coronary Artery Disease, Hx Heart Attack, Hx Hypercholesterolemia, Hx Hypertension Past Surgical History: Reports: Hx Cardiac Catheterization - Cardiac catheterization with drug-eluting stent in February 2019, Hx Coronary Stent - Immunizations Immunizations up to date: No Hx Diphtheria, Pertussis, Tetanus Vaccination: Yes Review of Systems - Review of Systems Constitutional: No symptoms reported EENT: No symptoms reported Cardiovascular: See HPI. denies: Chest pain Respiratory: No symptoms reported Gastrointestinal: No symptoms reported Genitourinary: No symptoms reported Male Genitourinary: No symptoms reported Musculoskeletal: See HPI, Joint pain Skin: No symptoms reported Hematologic/Lymphatic: No symptoms reported Neurological/Psychological: No symptoms reported -: Yes All other systems reviewed and negative Physical Exam - Vital signs Vitals: Temp Pulse Resp BP Pulse Ox 98.5 F 81 18 129/88 H 99 02/23/20 02:39 02/23/20 02:39 02/23/20 02:39 02/23/20 02:39 02/23/20 02:39 Interpretation: Normal - General General appearance: Alert In distress: None - HEENT Head: Normocephalic, Atraumatic Eyes: Normal Pupils: PERRL - Respiratory Respiratory status: No respiratory distress Chest status: Nontender Breath sounds: Normal Chest palpation: Normal - Cardiovascular Rhythm: Regular Heart sounds: Normal auscultation Murmur: No - Abdominal Inspection: Normal Distension: No distension Bowel sounds: Normal Tenderness: Nontender - Abdomen soft Organomegaly: No organomegaly - Back Back: Normal, Nontender - Extremities General lower extremity: Normal inspection. No: Edema Shoulder: Tender - Tenderness to light palpation of bilateral shouders and scapular ridges. Patient is able to take off his shirt without any difficulty or limited ROM. No swelling appreciated. Elbow: Tender - Tenderness to light palpation of bilateral lateral medial epicondyles. No: Joint effusion - Neurological Neuro grossly intact: Yes Orientation: AAOx4 Dunbar Coma Scale Eye Opening: Spontaneous Dun[place] Coma Scale Verbal: Oriented Yessica Coma Scale Motor: Obeys Commands Yessica Coma Scale Total: 15 - Psychological Associated symptoms: Normal affect, Normal mood - Skin Skin Temperature: Warm Skin Moisture: Dry Skin Color: Normal Course - Re-evaluation Re-evalutation: 02/23/20 11:18 The patient has an unexplained leukocytosis with a white blood cell count 18,900 with 74 segs and no bands. His sed rate is 18 and his CRP is undetectable. His total CK is 113. The urine drug screen was positive for THC and opiates. He denies taking anything other than aspirin this morning, when confronted with the opiate drug screen he later said that he took a Percocet this morning. I do not think oxycodone is picked up by the urine drug screen here. Review of the [place] controlled database shows he is not received prescriptions for any c ontrolled substance other than tramadol in the last 3 to 4 years. I told the patient that there is no obvious explanation for the type of pain he was feeling all over his body or the elevated white blood cell count with negative inflammatory markers. He does state at this time the pain all over the body is gone and now it is only in the left arm. He will be discharged with a prescription for an NSAID and recommended to drink plenty of fluids, rest, and follow-up with his primary care provider. - Vital Signs Vital signs: Temp Pulse Resp BP Pulse Ox 98.5 F 81 18 161/112 H 100 02/23/20 02:39 02/23/20 02:39 02/23/20 02:39 02/23/20 09:10 02/23/20 09:10 - Laboratory Result Diagrams: 02/23/20 07:57 02/23/20 07:57 Laboratory results interpreted by me: 02/23/20 02/23/20 02/23/20 07:57 07:57 09:04 WBC 18.9 H RBC 4.08 L MCV 107 H MCH 36.2 H RDW 17.2 H Absolute Neuts (auto) 14.0 H Absolute Monos (auto) 1.7 H ESR 18 H BUN 6 L Glucose 114 H Total Protein 8.7 H Albumin 5.2 H Urine Protein 30 H - EKG Interpretation by Me EKG shows normal: Sinus rhythm, Novelty, Intervals, QRS Complexes, ST-T Waves Rate: Normal - 80 Rhythm: NSR P Waves: LAE Discharge - Discharge Clinical Impression: Generalized pain Leukocytosis Qualifiers: Leukocytosis type: unspecified Qualified Code(s): D72.829 - Elevated white blood cell count, unspecified Condition: Stable Disposition: HOME, SELF-CARE Additional Instructions: There was no clear explanation for the generalized tenderness you were experiencing this morning. You were given a dose of an anti-inflammatory medication, and it seems to have improved the discomfort everywhere except your left arm. You did have an elevated white blood cell count without any obvious source for infection. Blood cultures were done to look for occult infection. We will prescribe an anti-inflammatory pain medication to take for the next few days. You should take the naproxen anti-inflammatory medicine with a glass of milk or some food to help protect your stomach lining. You should follow-up with your primary care provider if your pain symptoms do not improve. You should return to the emergency room if you have any significant change in your discomfort, or if you begin running fevers. RETURN TO THE EMERGENCY ROOM IF ANY NEW OR WORSENING SYMPTOMS. You should take your blood pressure medications when you get home. Prescriptions: Naproxen [Naprosyn] 500 mg PO BID #20 tablet I personally performed the services described in the documentation, reviewed and edited the documentation which was dictated to the scribe in my presence, and it accurately records my words and actions.
[2020-02-23 08:10] LABS: ABSOLUTE BASOPHILS # (AUTO) 0.2 10^3/uL (0.0-0.2); ABSOLUTE EOSINOPHILS # (AUTO) 0.1 10^3/uL (0.0-0.6); ABSOLUTE LYMPHOCYTES (AUTO) 2.9 10^3/uL (0.5-4.7); ABSOLUTE MONOCYTES (AUTO) 1.7 10^3/uL (0.1-1.4); EOSINOPHILS % (AUTO) 0.8 % (0-6); HEMATOCRIT 43.5 % (37.9-51.0); HEMOGLOBIN 14.8 g/dL (13.5-17.0); LYMPHOCYTES % (AUTO) 15.4 % (13-45); MEAN CORPUSCULAR HEMOGLOBIN 36.2 pg (27.0-33.4); MEAN CORPUSCULAR HGB CONC 33.9 g/dL (32.0-36.0); MEAN CORPUSCULAR VOLUME 107 fl (80-97); MONOCYTES % (AUTO) 8.8 % (3-13); PLATELET COUNT 410 10^3/uL (150-450); RED BLOOD COUNT 4.08 10^6/uL (4.35-5.55); RED CELL DISTRIBUTION WIDTH 17.2 % (11.5-14.0); TOTAL CELLS COUNTED % (AUTO) 100 %; WHITE BLOOD COUNT 18.9 10^3/uL (4.0-10.5)
[2020-02-23 08:39] LABS: ALBUMIN 5.2 g/dL (3.5-5.0); ALKALINE PHOSPHATASE 69 U/L (38-126); ANION GAP 15 (5-19); ASPARTATE AMINO TRANSFERASE 24 U/L (17-59); BILIRUBIN,DIRECT 0.1 mg/dL (0.0-0.4); BILIRUBIN,TOTAL 0.7 mg/dL (0.2-1.3); BLOOD UREA NITROGEN 6 mg/dL (7-20); CALCIUM 9.8 mg/dL (8.4-10.2); CARBON DIOXIDE 26 mmol/L (22-30); CHLORIDE 101 mmol/L (98-107); CREATINE KINASE 113 U/L (55-170); GLUCOSE 114 mg/dL (75-110); POTASSIUM 3.8 mmol/L (3.6-5.0); TOTAL PROTEIN 8.7 g/dL (6.3-8.2)
[2020-02-23 08:41] LABS: C-REACTIVE PROTEIN < 5.0 mg/L (<10.0)
[2020-02-23] MEDS ORDERED: NORMAL SALINE 1000 ML 1,000 ML IV ONE (08:42)
[2020-02-23 08:46] LABS: ERYTHROCYTE SEDIMENTATION RATE 18 mm/hr (0-15)
[2020-02-23 09:24] LABS: APPEARANCE,URINE CLEAR; BILIRUBIN,URINE NEGATIVE (NEGATIVE); COLOR,URINE YELLOW; GLUCOSE, URINE NEGATIVE (NEGATIVE); KETONES,URINE NEGATIVE (NEGATIVE); LEUKOCYTE ESTERASE,URINE NEGATIVE (NEGATIVE); NITRITE,URINE NEGATIVE (NEGATIVE); PROTEIN,URINE 30 mg/dL (NEGATIVE); URINE SPECIFIC GRAVITY 1.016; UROBILINOGEN,URINE NEGATIVE mg/dL (<2.0)
[2020-02-23 09:43] LABS: URINE AMPHETAMINES SCREEN NEGATIVE; URINE BARBITURATES SCREEN NEGATIVE; URINE BENZODIAZEPINES SCREEN NEGATIVE; URINE COCAINE SCREEN NEGATIVE; URINE METHADONE SCREEN NEGATIVE; URINE PHENCYCLIDINE SCREEN NEGATIVE
[2020-02-23 10:29] LABS: URINE MARIJUANA (THC) SCREEN UNCONFIRMED POSITIVE
[2020-02-23 12:07] VITALS: BP 122/105
--- NOTE | 2020-02-23 15:20 | EKG REPORT ---
SEVERITY:- BORDERLINE ECG - SINUS RHYTHM PROBABLE LEFT ATRIAL ABNORMALITY : Confirmed by: Kiara Plasencia MD 23-Feb-2020 15:19:36
== END 2020-02-23 12:07 | disposition home or self-care (01) ==
LOC: ER 02:09
DX: M25.511 Pain in right shoulder (principal); M25.512 Pain in left shoulder; M25.521 Pain in right elbow; M25.522 Pain in left elbow; D72.829 Elevated white blood cell count, unspecified; I25.10 Atherosclerotic heart disease of native coronary artery without angina pectoris; F17.210 Nicotine dependence, cigarettes, uncomplicated; F12.10 Cannabis abuse, uncomplicated; I10 Essential (primary) hypertension; I25.2 Old myocardial infarction; Z95.5 Presence of coronary angioplasty implant and graft; Z79.899 Other long term (current) drug therapy
CPT/HCPCS: 93005; 99284; 96361; 96374; 36415; 87040; 82550; 83735; 85025; 85652; 86140; 87077; 80053; 81001; 84484; 80307; 87150 ×26; 93010; J3490; J1885; J7030